=== PATIENT | male | born 1970 | race Caucasian/White ===

== ENCOUNTER 2021-01-03 02:23 | Emergency (ER) | payer OTHER ==
[2021-01-03] MEDS ORDERED: Ciprofloxacin 0.3% Ophth Soln 5 ML Bottle EYERT ONE (02:52)
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
[2021-01-03] MEDS ORDERED: Ketorolac 0.5% Ophth Soln 5 ML Bottle EYERT ONE (02:53)
[2021-01-03] MEDS ORDERED: Ibuprofen 600 MG Tab PO ONE (02:53)
== END 2021-01-03 03:21 | disposition home or self-care (01) ==
LOC: JD.ED 02:23
DX: S05.02XA Injury of conjunctiva and corneal abrasion without foreign body, left eye, initial encounter (principal); V49.40XA Driver injured in collision with unspecified motor vehicles in traffic accident, initial encounter
CPT/HCPCS: 99284; A9270

== ENCOUNTER 2025-03-24 12:41 | Emergency (ER) | payer OTHER | END 2025-03-24 15:49 | disposition home or self-care (01) | LOC: JD.ED 12:41 | DX: S59.912A Unspecified injury of left forearm, initial encounter (principal); X58.XXXA Exposure to other specified factors, initial encounter | CPT/HCPCS: 29125; 73090; 99283; A9270 ==